=== PATIENT | male | born 1990 | race African-American/Black ===

== ENCOUNTER 2019-03-01 23:41 | Emergency (ER) | payer MEDICAID ==
[~2019-03-01] VITALS: Ht 190.5 cm; Wt 84.0 kg
[2019-03-02] MEDS ORDERED: NAPROXEN 375MG TABLET PO ONE (01:30)
[2019-03-02 02:11] LABS: CHLORIDE 109 mEq/L (98-107)
[2019-03-02 02:16] LABS: BASOPHILS % 0.3 % (0.0-2.0); EOSINOPHILS % 1.5 % (0.0-5.0); HEMATOCRIT. 44.4 % (42.0-52.0); HEMOGLOBIN. 15.4 g/dL (14.0-18.0); MEAN CORPUSCULAR HEMOGLOBIN 30.7 pg (28.0-32.0); MEAN CORPUSCULAR VOLUME 88.4 fL (80.0-94.0); MEAN PLATELET VOLUME 7.3 fl (7.4-10.4); NEUTROPHILS % 49.2 % (40.0-76.0); PLATELET 233 x1000/uL (130-400); RED BLOOD CELL COUNT 5.02 mill/uL (4.7-6.1); RED CELL DISTRIBUTION WIDTH 13.9 % (11.6-14.6)
[2019-03-02 04:38] VITALS: BP 102/71
== END 2019-03-02 04:39 | disposition home or self-care (01) ==
LOC: ER 23:41
DX: J06.9 Acute upper respiratory infection, unspecified (principal); Z87.828 Personal history of other (healed) physical injury and trauma
CPT/HCPCS: 36415; 71045; 80048; 84484; 85379; 93005; 99284

== ENCOUNTER 2019-04-26 10:35 | Emergency (ER) | payer MEDICAID ==
[~2019-04-26] VITALS: Ht 182.9 cm; Wt 84.0 kg
[2019-04-26] MEDS ORDERED: KETOROLAC 15MG/ML VIAL IM ONE (11:15)
[2019-04-26 12:17] VITALS: BP 118/69
== END 2019-04-26 12:18 | disposition home or self-care (01) ==
LOC: ER 10:35
DX: R07.89 Other chest pain (principal); I31.9 Disease of pericardium, unspecified; X50.0XXA Overexertion from strenuous movement or load, initial encounter; Y93.89 Activity, other specified; Y92.018 Other place in single-family (private) house as the place of occurrence of the external cause
CPT/HCPCS: 71045; 93005; 96372; 99283; J1885

== ENCOUNTER 2019-10-27 19:32 | Emergency (ER) | payer MEDICAID ==
[~2019-10-27] VITALS: Ht 190.5 cm; Wt 82.0 kg
[2019-10-27] MEDS ORDERED: DIPHENHYDRAMINE 25MG CAPSULE PO ONE (21:00)
[2019-10-27] MEDS ORDERED: IBUPROFEN 600MG TABLET PO ONE (21:00)
[2019-10-27 21:35] LABS: BASOPHILS % 0.1 % (0.0-2.0); HEMATOCRIT. 42.9 % (42.0-52.0); HEMOGLOBIN. 14.9 g/dL (14.0-18.0); LYMPHOCYTES % 38.5 % (20.0-50.0); MEAN CORPUSCULAR HEMOGLOBIN 29.9 pg (28.0-32.0); MEAN CORPUSCULAR VOLUME 85.6 fL (80.0-94.0); MEAN PLATELET VOLUME 7.3 fl (7.4-10.4); MONOCYTES % 8.8 % (2.0-8.0); NEUTROPHILS % 51.6 % (40.0-76.0); PLATELET 225 x1000/uL (130-400); RED BLOOD CELL COUNT 5.01 mill/uL (4.7-6.1); RED CELL DISTRIBUTION WIDTH 13.8 % (11.6-14.6)
[2019-10-27 21:42] LABS: CHLORIDE 108 mEq/L (98-107)
[2019-10-27 23:03] VITALS: BP 130/75
== END 2019-10-27 23:05 | disposition home or self-care (01) ==
LOC: ER 19:44
DX: L42 Pityriasis rosea (principal); B09 Unspecified viral infection characterized by skin and mucous membrane lesions
CPT/HCPCS: 36415; 80048; 85025; 85651; 99283; Q0163